=== PATIENT | female | born 1970 | race American Indian/Alaskan Native ===

== ENCOUNTER 2021-03-14 09:39 | Emergency (ER) | payer OTHER ==
[2021-03-14] MEDS ORDERED: cefTRIAXone 1 GM Vial IM ONE (11:27)
--- NOTE | 2021-03-14 11:58 | EDM.PDOC ---
ED HPI GENERAL MEDICAL PROBLEM - General Chief Complaint: Wound Recheck Stated Complaint: POST SURGICAL STITCHING COMPLICATIONS Time Seen by Provider: 03/14/21 10:10 Source of Information: Reports: Patient History Limitations: Reports: No Limitations - History of Present Illness INITIAL COMMENTS - FREE TEXT/NARRATIVE: c/o wound infection CABG x 2 on 02/26 at [facility], d/c on 03/04 has DM, seen yesterday at [facility] and Actos stopped and begun on weekly injection pt states her BS have been running in the 200s she has had smith pus under her sternal dressing which she changed several days ago had smith drainage on her shirt when she got up this morning no f/c/d, no n/v her with hsuband d/w CT surgery in [facility], Мария Lawson who accepted pt as direct admission pt will likely need 6w of antbxs, no h/o MRSA given cetriaxone 1 gm IM prior to transfer, here and agreed to drive her, pt given lunch tray here in ED vss here, no labs here, which will be checked in - Related Data Allergies Allergy/AdvReac Type Severity Reaction Status Date / Time latex Allergy Rash Verified 08/08/15 19:33 lisinopril Allergy Rash Verified 08/08/15 20:24 metronidazole Allergy Rash Verified 08/08/15 20:24 nifedipine Allergy Tachycardia Verified 08/08/15 19:33 Home Meds: Home Meds Aspirin [Halfprin] 81 mg PO DAILY 08/08/15 [History] Clopidogrel [Plavix] 75 mg PO DAILY 08/08/15 [History] Losartan Potassium 50 mg PO DAILY 08/08/15 [History] amLODIPine Besylate [Amlodipine Besylate] 10 mg PO DAILY 08/08/15 [History] atorvaSTATin [Lipitor] 10 mg PO BEDTIME 08/08/15 [History] glipiZIDE [Glipizide ER] 10 mg PO ACBREAKFAST 08/08/15 [History] sitaGLIPtin Phos/Metformin HCl [Janumet 50-1,000 MG] 1 each PO BID 08/08/15 [History] Past Medical History Cardiovascular History: Reports: Bypass, CAD, Other (See Below) Other Cardiovascular History: HAS HEART STENTS. CABG x2 on 02/26/2021 at [facility] Psychiatric History: Reports: Anxiety Endocrine/Metabolic History: Reports: Diabetes, Type I - Past Surgical History Cardiovascular Surgical History: Reports: Coronary Artery Bypass Social & Family History - Family History Family Medical History: No Pertinent Family History - Tobacco Use Tobacco Use Status *Q: Never Tobacco User Second Hand Smoke Exposure: No - Recreational Drug Use Recreational Drug Use: No ED ROS GENERAL - Review of Systems Review Of Systems: See Below Constitutional: Reports: No Symptoms HEENT: Reports: No Symptoms Respiratory: Reports: No Symptoms Cardiovascular: Reports: No Symptoms Endocrine: Reports: No Symptoms GI/Abdominal: Reports: No Symptoms : Reports: No Symptoms Musculoskeletal: Reports: No Symptoms Skin: Reports: Wound Neurological: Reports: No Symptoms Psychiatric: Reports: No Symptoms Hematologic/Lymphatic: Reports: No Symptoms Immunologic: Reports: No Symptoms ED EXAM, SKIN/RASH Exam: See Below Exam Limited By: No Limitations General Appearance: Alert, WD/WN, No Apparent Distress Nose: Normal Inspection Throat/Mouth: Normal Inspection Head: Atraumatic Neck: Normal Inspection, Supple, Non-Tender, Full Range of Motion. No: Lymphadenopathy (R), Lymphadenopathy (L) Respiratory/Chest: No Respiratory Distress, Lungs Clear, Normal Breath Sounds Cardiovascular: Regular Rate, Rhythm, No Edema GI/Abdominal: Soft, Non-Tender, No Distention Extremities: Normal Inspection, Normal Range of Motion Neurological: Alert, Oriented, CN II-XII Intact, Normal Cognition, No Motor/Sensory Deficits, Sensory/Motor Deficit Psychiatric: Normal Affect Skin: Other (sternal wound with slight separation of 3 mm along most of length, skin is not red/warm/edematous, no evidence of cellulitis, there is no discrete collection of subc fluid, a few drops of fluid that were 1/2 serous and 1/2 smith exudate were obtained from tissue between subc fat and sternum) Location, Skin: Other (a few drops of secretions obtained from the layer between subc fat and sternum 1/2 down incision) Lymphatic: No Adenopathy Course - Vital Signs Last Recorded V/S: Last Vital Signs Temp 36.6 C 03/14/21 09:55 Pulse 77 03/14/21 09:55 Resp 18 03/14/21 09:55 BP 131/77 03/14/21 09:55 Pulse Ox - Orders/Labs/Meds Orders: Active Orders 24 hr Category Date Time Status CULTURE ROUTINE + SMEAR [RM] Stat Lab 03/14/21 11:32 Ordered Meds: Medications Discontinued Medications Generic Name Dose Route Start Last Admin Trade Name Hugo PRN Reason Stop Dose Admin Ceftriaxone Sodium 1 gm 03/14/21 11:27 Ceftriaxone 1 Gm Vial IM 03/14/21 11:28 ONETIME ONE - Re-Assessments/Exams Free Text/Narrative Re-Assessment/Exam: 03/14/21 12:25 some concern for incipient infection at sternum with inc'd risk for osteo and K- wire infection to be admitted to CT surgery in [place], pt and in agreement Departure - Departure Time of Disposition: 12:16 Disposition: DC/Tfer to Medicaid Nur Fac 64 Condition: Good Clinical Impression: Postoperative wound infection - Discharge Information *PRESCRIPTION DRUG MONITORING PROGRAM REVIEWED*: Not Applicable *COPY OF PRESCRIPTION DRUG MONITORING REPORT IN PATIENT PRISCILLA: Not Applicable Instructions: Wound Infection Referrals: PCP,Not In Area [Primary Care Provider] - Additional Instructions: Go to [facility] for direct admission to CT (cardiothoracic) surgery to Мария Lawson NP. You were given a dose of the antibiotic ceftriaxone 1 gm IM. Sepsis Event Note (ED) - Evaluation Sepsis Screening Result: No Definite Risk - Focused Exam Vital Signs: Vital Signs Temp Pulse Resp BP 03/14/21 09:55 36.6 C 77 18 131/77 - My Orders Last 24 Hours: My Active Orders 03/14/21 11:32 CULTURE ROUTINE + SMEAR [RM] Stat - Assessment/Plan Last 24 Hours: My Active Orders 03/14/21 11:32 CULTURE ROUTINE + SMEAR [RM] Stat
[2021-03-14 13:36] VITALS: BP 132/71
[2021-03-14 15:07] VITALS: PULSE 77
== END 2021-03-14 12:28 ==
LOC: FB.ED 09:39
DX: T81.40XA Infection following a procedure, unspecified, initial encounter (principal); E10.9 Type 1 diabetes mellitus without complications; I25.10 Atherosclerotic heart disease of native coronary artery without angina pectoris; Z95.1 Presence of aortocoronary bypass graft; Z79.82 Long term (current) use of aspirin; Z91.040 Latex allergy status; Z88.8 Allergy status to other drugs, medicaments and biological substances; Z79.02 Long term (current) use of antithrombotics/antiplatelets; Z79.899 Other long term (current) drug therapy
CPT/HCPCS: 87070; 87205; 96372; 99284; J0696